=== PATIENT | male | born 1985 | race African-American/Black ===

== ENCOUNTER 2016-08-16 13:56 | Emergency (ER) | payer SELFPAY ==
--- NOTE | 2016-08-16 14:25 | ER Document Report ---
ED Medical Screen (RME) - General Stated Complaint: STOMACH PAIN Time seen by provider: 14:23 Mode of Arrival: Ambulatory Information source: Patient Notes: 31-year-old male complaining of sharp periUmbilical abdominal pain 4/5 now, worse when he eats over the past week. He has been vomiting scat blood at times , occurred last night and that is why he came today.. TRAVEL OUTSIDE OF THE [place] IN LAST 30 DAYS: No - Related Data Allergies/Adverse Reactions: No Known Allergies Allergy (Verified 08/16/16 14:23) Past Medical History Psychiatric Medical History: Reports: Hx Attention Deficit Hyperactivity Disorder, Hx Bipolar Disorder, Hx Depression, Hx Schizophrenia Past Surgical History: Reports: Hx Cardiac Surgery - Open heart surgery as - Immunizations Immunizations up to date: Yes Hx Diphtheria, Pertussis, Tetanus Vaccination: Yes Physical Exam - Vital signs Vitals: Temp Pulse Resp BP Pulse Ox 98.3 F 71 16 130/70 H 98 08/16/16 14:16 08/16/16 14:16 08/16/16 14:16 08/16/16 14:16 08/16/16 14:16 Course - Vital Signs Vital signs: Temp Pulse Resp BP Pulse Ox 98.3 F 71 16 130/70 H 98 08/16/16 14:16 08/16/16 14:16 08/16/16 14:16 08/16/16 14:16 08/16/16 14:16
[2016-08-16] MEDS ORDERED: MAG HYDROX/AL HYDROX/SIMETH SUSP 30 ML UDCUP PO ONE (15:07)
[2016-08-16] MEDS ORDERED: LIDOCAINE 2% VISCOUS SOLN 20 ML UDCUP PO ONE (15:07)
[2016-08-16] MEDS ORDERED: METOCLOPRAMIDE HCL ORAL SOLN 10 MG/10 ML UDCUP PO ONE (15:07)
--- NOTE | 2016-08-16 15:09 | ER Document Report ---
ED GI/ <FAITHMARCIAL - Last Filed: 08/16/16 16:04> - General Mode of Arrival: Ambulatory Information source: Patient TRAVEL OUTSIDE OF THE [place] IN LAST 30 DAYS: No - HPI Patient complains to provider of: Abdominal pain Onset: Other - 1 week ago Location: Epigastric Associated symptoms: Other - see above <EDWIN LESLIE - Last Filed: 08/16/16 17:02> - General Chief Complaint: Abdominal Pain Stated Complaint: STOMACH PAIN Notes: 31 year old male with history of abdominal pain and hematemesis presents to the ED complaining of epigastric abdominal pain that started 1 week ago. Patient states that eating exacerbates the pain (7-8/10 on pain scale). Patient explains that spicy food and soda does not upset the patient's stomach. Patient is having normal bowel movements. Patient states that he had an episode of hematemesis last night, but denies any rectal bleeding, trouble urinating, or testicular pain. Patient states that he is not on any medication for his chronic abdominal pain, but takes Pepto Bismol as needed for abdominal discomfort. Patient also denies ever getting an endoscopy performed. (EDWIN LESLIE) - Related Data Allergies/Adverse Reactions: No Known Allergies Allergy (Verified 08/16/16 14:24) Past Medical History - General Information source: Patient - Social History Smoking Status: Never Smoker Chew tobacco use (# tins/day): No Frequency of alcohol use: None Drug Abuse: None Family History: Reviewed & Not Pertinent Patient has suicidal ideation: No Patient has homicidal ideation: No GI Medical History: Reports: Other - history of abdominal pain. Denies: Hx Endoscopy Psychiatric Medical History: Reports: Hx Attention Deficit Hyperactivity Disorder, Hx Bipolar Disorder, Hx Depression, Hx Schizophrenia Past Surgical History: Reports: Hx Cardiac Surgery - Open heart surgery as - Immunizations Immunizations up to date: Yes Hx Diphtheria, Pertussis, Tetanus Vaccination: Yes <EDWIN LESLIE - Last Filed: 08/16/16 17:02> Review of Systems - Review of Systems Constitutional: No symptoms reported EENT: No symptoms reported Cardiovascular: No symptoms reported Respiratory: No symptoms reported Gastrointestinal: See HPI, Abdominal pain, Vomiting, Blood in vomit. denies: Rectal bleeding Genitourinary: No symptoms reported. denies: Dysuria Male Genitourinary: No symptoms reported. denies: Testicular pain Musculoskeletal: No symptoms reported Skin: No symptoms reported Hematologic/Lymphatic: No symptoms reported Neurological/Psychological: No symptoms reported <EDWIN LESLIE - Last Filed: 08/16/16 17:02> Physical Exam - Vital signs Interpretation: Normal - General General appearance: Alert In distress: None - HEENT Head: Normocephalic, Atraumatic Eyes: Normal Extraocular movements intact: Yes Pupils: PERRL - Respiratory Respiratory status: No respiratory distress Breath sounds: Normal - Cardiovascular Rhythm: Regular Heart sounds: Normal auscultation - Abdominal Inspection: Normal Distension: No distension Bowel sounds: Normal Tenderness: Nontender - RUQ and RLQ non-tender, Tender - mild epigastric tenderness to palpation, Other - no rigidity. No: Guarding, Rebound - Back Back: Normal, Nontender - Extremities General upper extremity: Normal inspection, Normal ROM General lower extremity: Normal inspection, Normal ROM - Neurological Neuro grossly intact: Yes Cognition: Normal Orientation: AAOx4 Gianfrn[place] Coma Scale Eye Opening: Spontaneous [place] Coma Scale Verbal: Oriented Gianfranco Coma Scale Motor: Obeys Commands [place] Coma Scale Total: 15 Speech: Normal - Psychological Associated symptoms: Normal affect, Normal mood - Skin Skin Temperature: Warm Skin Moisture: Dry Skin Color: Normal <EDWIN LESLIE - Last Filed: 08/16/16 17:02> - Vital signs Vitals: Temp Pulse Resp BP Pulse Ox 98.3 F 71 16 130/70 H 98 08/16/16 14:16 08/16/16 14:16 08/16/16 14:16 08/16/16 14:16 08/16/16 14:16 (MARCIAL CUEVAS) Course - Laboratory Result Diagrams: 08/16/16 15:15 08/16/16 15:15 <MARCIAL CUEVAS - Last Filed: 08/16/16 16:04> - Laboratory Result Diagrams: 08/16/16 15:15 08/16/16 15:15 <EDWIN LESLIE - Last Filed: 08/16/16 17:02> - Re-evaluation Re-evalutation: 08/16/16 15:39 I personally performed the services described in the documentation, reviewed and edited the documentation which was dictated to my scribe in my presence, and it accurately records my words and actions. presents emergency Department chief plan mild epigastric abdominal pain. He has a history of visits the emergency department in the past for epigastric abdominal pain. He has no right upper quadrant tenderness or relationship to food. He describes it as a burning stays right in the epigastrium he vomited up food yesterday and there were some specks of blood in it but no pure blood in it. He is not lightheaded dizzy no chest pain no shortness of breath no blood when he goes to the bathroom normal bowel movements. No history of Crohn's disease or ulcerative colitis. Does not radiate into the back and denies a history of alcohol or substance abuse. On examination he is well-appearing nontoxic in no acute distress told he is not tachycardic and afebrile. On examination very mild epigastric tenderness but no associated guarding rebound or rigidity 08/16/16 16:03 Patient's discomfort resolved with GI cocktail negative acute white count elevation liver enzymes lipase on examination no acute guarding rebound rigidity or peritoneal signs. We will DC on Prilosec one to 2 day follow-up with the clinic which I have given him for follow-up discussed avoidance of certain types of foods and NSAIDs alcohol cigarette and soda. Discussed reasons for ED return sooner (MARCIAL CUEVAS) - Vital Signs Vital signs: Temp Pulse Resp BP Pulse Ox 98.3 F 71 16 130/70 H 98 08/16/16 14:16 08/16/16 14:16 08/16/16 14:45 08/16/16 14:16 08/16/16 14:16 (MARCIAL CUEVAS) (EDWIN LESLIE) - Laboratory Laboratory results interpreted by me: 08/16/16 08/16/16 15:05 15:15 Hgb 12.8 L Urine Urobilinogen 2.0 H Urine Ascorbic Acid 40 H (MARCIAL CUEVAS) Scribe Documentation - Scribe Written by Yash:: Yash Leiva, 08/16/2016 17:02 acting as scribe for :: Faith <EDWIN LESLIE - Last Filed: 08/16/16 17:02>
[2016-08-16 15:29] LABS: ABSOLUTE BASOPHILS # (AUTO) 0.1 10^3/uL (0.0-0.2); ABSOLUTE EOSINOPHILS # (AUTO) 0.2 10^3/uL (0.0-0.6); ABSOLUTE LYMPHOCYTES (AUTO) 2.4 10^3/uL (0.5-4.7); ABSOLUTE MONOCYTES (AUTO) 0.5 10^3/uL (0.1-1.4); ABSOLUTE NEUT (AUTO) 2.5 10^3/uL (1.7-8.2); BASOPHILS % (AUTO) 1.2 % (0-2); EOSINOPHILS % (AUTO) 4.1 % (0-6); HEMATOCRIT 38.2 % (37.9-51.0); HEMOGLOBIN 12.8 g/dL (13.5-17.0); HGB HCT DIFFERENCE 0.2; LYMPHOCYTES % (AUTO) 41.3 % (13-45); MEAN CORPUSCULAR HEMOGLOBIN 28.4 pg (27.0-33.4); MEAN CORPUSCULAR HGB CONC 33.6 g/dL (32.0-36.0); MEAN CORPUSCULAR VOLUME 84 fl (80-97); MONOCYTES % (AUTO) 9.3 % (3-13); RED BLOOD COUNT 4.53 10^6/uL (4.35-5.55); RED CELL DISTRIBUTION WIDTH 12.3 % (11.5-14.0); SEGMENTED NEUTROPHILS % (AUTO) 44.1 % (42-78); WHITE BLOOD COUNT 5.7 10^3/uL (4.0-10.5)
[2016-08-16 15:42] LABS: ALANINE AMINOTRANSFERASE 25 U/L (21-72); ALBUMIN 4.3 g/dL (3.5-5.0); ALKALINE PHOSPHATASE 64 U/L (38-126); ANION GAP 12 (5-19); ASPARTATE AMINO TRANSFERASE 17 U/L (17-59); BLOOD UREA NITROGEN 11 mg/dL (7-20); CALCIUM 9.5 mg/dL (8.4-10.2); CARBON DIOXIDE 26 mmol/L (22-30); CHLORIDE 107 mmol/L (98-107); CREATININE RESULT 0.96 mg/dL (0.52-1.25); GLUCOSE 80 mg/dL (75-110); LIPASE 46.1 U/L (23-300); POTASSIUM 3.9 mmol/L (3.6-5.0); SODIUM 144.8 mmol/L (137-145); TOTAL PROTEIN 7.3 g/dL (6.3-8.2)
[2016-08-16 15:56] LABS: APPEARANCE,URINE CLEAR; BILIRUBIN,URINE NEGATIVE (NEGATIVE); GLUCOSE, URINE NEGATIVE (NEGATIVE); KETONES,URINE NEGATIVE (NEGATIVE); LEUKOCYTE ESTERASE,URINE NEGATIVE (NEGATIVE); NITRITE,URINE NEGATIVE (NEGATIVE); PROTEIN,URINE NEGATIVE (NEGATIVE)
[2016-08-16 17:54] VITALS: BP 106/53
[2016-08-17 17:04] LABS: URINE BARBITURATES SCREEN NEGATIVE; URINE METHADONE SCREEN NEGATIVE; URINE PHENCYCLIDINE SCREEN NEGATIVE
--- NOTE | 2016-08-25 20:32 | ER Document Report ---
Doctor's Note Notes: 08/25/16 20:32 diagnosis 1. acute epigastric abdominal pain
== END 2016-08-16 16:15 | disposition home or self-care (01) ==
LOC: ER 13:56
DX: R10.13 Epigastric pain (principal); K92.0 Hematemesis
CPT/HCPCS: 99284; 36415; 83690; 85025; 80053; 81001; 80307; J3490

== ENCOUNTER 2016-08-18 07:13 | Emergency (ER) | payer SELFPAY ==
[2016-08-18] MEDS ORDERED: MAG HYDROX/AL HYDROX/SIMETH SUSP 30 ML UDCUP PO ONE (09:05)
[2016-08-18] MEDS ORDERED: LIDOCAINE 2% VISCOUS SOLN 20 ML UDCUP PO ONE (09:05)
[2016-08-18] MEDS ORDERED: METOCLOPRAMIDE HCL ORAL SOLN 10 MG/10 ML UDCUP PO ONE (09:05)
[2016-08-18 09:40] LABS: ALANINE AMINOTRANSFERASE 15 U/L (21-72); ALBUMIN 3.7 g/dL (3.5-5.0); ALKALINE PHOSPHATASE 61 U/L (38-126); ANION GAP 10 (5-19); ASPARTATE AMINO TRANSFERASE 19 U/L (17-59); BILIRUBIN,TOTAL 1.2 mg/dL (0.2-1.3); BLOOD UREA NITROGEN 13 mg/dL (7-20); CALCIUM 9.3 mg/dL (8.4-10.2); CARBON DIOXIDE 27 mmol/L (22-30); CHLORIDE 107 mmol/L (98-107); CREATININE RESULT 0.97 mg/dL (0.52-1.25); GLUCOSE 83 mg/dL (75-110); LIPASE 43.4 U/L (23-300); POTASSIUM 4.1 mmol/L (3.6-5.0); SODIUM 144.3 mmol/L (137-145); TOTAL PROTEIN 6.9 g/dL (6.3-8.2)
[2016-08-18 09:42] LABS: ABSOLUTE BASOPHILS # (AUTO) 0.1 10^3/uL (0.0-0.2); ABSOLUTE EOSINOPHILS # (AUTO) 0.1 10^3/uL (0.0-0.6); ABSOLUTE LYMPHOCYTES (AUTO) 1.2 10^3/uL (0.5-4.7); ABSOLUTE MONOCYTES (AUTO) 0.4 10^3/uL (0.1-1.4); ABSOLUTE NEUT (AUTO) 2.7 10^3/uL (1.7-8.2); BASOPHILS % (AUTO) 1.2 % (0-2); EOSINOPHILS % (AUTO) 2.7 % (0-6); HEMATOCRIT 37.1 % (37.9-51.0); HEMOGLOBIN 12.5 g/dL (13.5-17.0); HGB HCT DIFFERENCE 0.4; LYMPHOCYTES % (AUTO) 27.7 % (13-45); MEAN CORPUSCULAR HEMOGLOBIN 28.6 pg (27.0-33.4); MEAN CORPUSCULAR HGB CONC 33.7 g/dL (32.0-36.0); MEAN CORPUSCULAR VOLUME 85 fl (80-97); MONOCYTES % (AUTO) 8.4 % (3-13); RED BLOOD COUNT 4.37 10^6/uL (4.35-5.55); RED CELL DISTRIBUTION WIDTH 12.2 % (11.5-14.0); WHITE BLOOD COUNT 4.5 10^3/uL (4.0-10.5)
[2016-08-18 09:48] LABS: APPEARANCE,URINE CLEAR; BILIRUBIN,URINE NEGATIVE (NEGATIVE); GLUCOSE, URINE NEGATIVE (NEGATIVE); KETONES,URINE NEGATIVE (NEGATIVE); LEUKOCYTE ESTERASE,URINE NEGATIVE (NEGATIVE); NITRITE,URINE NEGATIVE (NEGATIVE); PROTEIN,URINE NEGATIVE (NEGATIVE); URINE SPECIFIC GRAVITY 1.028
--- NOTE | 2016-08-18 11:47 | ER Document Report ---
ED GI/ - General Chief Complaint: Abdominal Pain Stated Complaint: Abdominal Pain Mode of Arrival: Ambulatory Information source: Patient Notes: 31-year-old male presents to the emergency department complaining of intermittently persistent abdominal/epigastric pain for approximately the last 2 weeks. Patient describes pain as sharp/stabbing, nonradiating, and states seems to be worse after eating or drinking. Reports associated nausea and states had one episode of vomiting yesterday. Report was seen in this emergency department 2 days ago but symptoms have not improved. Denies fever, hemoptysis, chest pain or shortness of breath, hemoptysis or hematemesis. TRAVEL OUTSIDE OF THE [place] IN LAST 30 DAYS: No - HPI Patient complains to provider of: Abdominal pain Timing/Duration: Intermittent, Persistent Quality of pain: Sharp, Stabbing Severity at maximum: Moderate Severity in ED: Mild Pain Level: 2 Location: Epigastric Associated symptoms: Nausea Similar symptoms previously: Yes Recently seen / treated by doctor: Yes - Related Data Allergies/Adverse Reactions: No Known Allergies Allergy (Verified 08/16/16 14:24) Past Medical History - General Information source: Patient - Social History Smoking Status: Never Smoker Frequency of alcohol use: None Drug Abuse: None Lives with: Family Family History: Reviewed & Not Pertinent GI Medical History: Denies: Hx Endoscopy Psychiatric Medical History: Reports: Hx Attention Deficit Hyperactivity Disorder, Hx Bipolar Disorder, Hx Depression, Hx Schizophrenia Past Surgical History: Reports: Hx Cardiac Surgery - Open heart surgery as - Immunizations Immunizations up to date: Yes Hx Diphtheria, Pertussis, Tetanus Vaccination: Yes Review of Systems - Review of Systems Constitutional: No symptoms reported EENT: No symptoms reported Cardiovascular: No symptoms reported Respiratory: No symptoms reported Gastrointestinal: See HPI Genitourinary: No symptoms reported Male Genitourinary: No symptoms reported Musculoskeletal: No symptoms reported Skin: No symptoms reported Hematologic/Lymphatic: No symptoms reported Neurological/Psychological: No symptoms reported -: Yes All other systems reviewed and negative Physical Exam - Vital signs Vitals: Temp Pulse Resp BP Pulse Ox 98.8 F 65 12 131/77 H 99 08/18/16 13:47 08/18/16 13:47 08/18/16 13:47 08/18/16 13:47 08/18/16 13:47 Interpretation: Normal - General General appearance: Appears well, Alert In distress: None - HEENT Head: Normocephalic, Atraumatic Eyes: Normal Pupils: PERRL - Respiratory Respiratory status: No respiratory distress Chest status: Nontender Breath sounds: Normal Chest palpation: Normal - Cardiovascular Rhythm: Regular Heart sounds: Normal auscultation Murmur: No Pulses: Normal: Radial Normal capillary refill: Yes - Abdominal Inspection: Normal Distension: No distension Bowel sounds: Normal Tenderness: Tender - Mild tenderness to palpation to mid upper/epigastric area.. No: Nontender, McBurney's point, Mitchell's sign, Guarding, Rebound, Other Organomegaly: No organomegaly - Back Back: Normal, Nontender. No: Tender, Deformity/step-off, CVA tenderness, Vertebra tenderness, Scars, Scoliosis, Wounds, Other - Extremities General upper extremity: Normal inspection, Nontender, Normal color, Normal ROM , Normal strength, Normal temperature. No: Tender, Edema General lower extremity: Normal inspection, Nontender, Normal color, Normal ROM , Normal strength, Normal temperature, Normal weight bearing. No: Tender, Edema - Neurological Neuro grossly intact: Yes Cognition: Normal Orientation: AAOx4 Gianfranco Coma Scale Eye Opening: Spontaneous [place] Coma Scale Verbal: Oriented [place]fr[place] Coma Scale Motor: Obeys Commands [place] Coma Scale Total: 15 Speech: Normal Motor strength normal: LUE, RUE, LLE, RLE Sensory: Normal - Psychological Associated symptoms: Normal affect, Normal mood - Skin Skin Temperature: Warm Skin Moisture: Dry Skin Color: Normal Skin Turgor: Elastic Course - Re-evaluation Re-evalutation: 08/18/16 13:37 Patient hemodynamically stable, in no distress, afebrile, and appears well- hydrated. Tolerating oral fluids without difficulty or vomiting. Labs and upper abdominal ultrasound unremarkable. No suggestion of emergent intra- abdominal, infectious or cardiovascular etiology at this time. States GI cocktail resolved symptoms. Will prescribe a course of H2 rach and her feet. Patient appears stable for discharge and agrees with home care, follow- up with PCP and GI, and ED return precautions. - Vital Signs Vital signs: Temp Pulse Resp BP Pulse Ox 98.8 F 65 12 131/77 H 99 08/18/16 13:47 08/18/16 13:47 08/18/16 13:47 08/18/16 13:47 08/18/16 13:47 - Laboratory Result Diagrams: 08/18/16 08:14 08/18/16 08:14 Laboratory results interpreted by me: 08/18/16 08/18/16 08/18/16 08:14 08:14 09:25 Hgb 12.5 L Hct 37.1 L ALT 15 L Urine Urobilinogen 4.0 H - Diagnostic Test Radiology reviewed: Image reviewed, Reports reviewed Discharge - Discharge Clinical Impression: Epigastric abdominal pain Condition: Stable Disposition: HOME, SELF-CARE Instructions: Evaluation of Upper Abdominal Pain ([facility]), Acid-Suppressing Medication ([facility]), Sucralfate ([facility]), Antacid Therapy ([facility]) Additional Instructions: Follow-up with your primary care provider and GI this week. Drink plenty of fluids, preferably water, and avoid caffeine, tea, alcohol, mint , spicy, and fatty foods. Return to the emergency department for any worsening symptoms or concerns. Prescriptions: Ranitidine HCl [Zantac 150 mg Tablet] 150 mg PO BID #30 tablet Sucralfate [Carafate 1 gm Tablet] 1 gm PO ACHS #30 tablet Referrals: TITI WILSON MD [ACTIVE STAFF] - Follow up in 3-5 days
[2016-08-18 14:04] VITALS: BP 131/77
== END 2016-08-18 13:55 | disposition home or self-care (01) ==
LOC: ER 07:13
DX: R10.13 Epigastric pain (principal); R11.0 Nausea
CPT/HCPCS: 99284; 36415; 83690; 85025; 80053; 81001; 76705; J3490

== ENCOUNTER 2016-08-27 17:00 | Emergency (ER) | payer SELFPAY ==
[2016-08-27 17:53] LABS: ABSOLUTE BASOPHILS # (AUTO) 0.1 10^3/uL (0.0-0.2); ABSOLUTE EOSINOPHILS # (AUTO) 0.1 10^3/uL (0.0-0.6); ABSOLUTE LYMPHOCYTES (AUTO) 1.3 10^3/uL (0.5-4.7); ABSOLUTE MONOCYTES (AUTO) 0.4 10^3/uL (0.1-1.4); ABSOLUTE NEUT (AUTO) 3.3 10^3/uL (1.7-8.2); BASOPHILS % (AUTO) 1.3 % (0-2); EOSINOPHILS % (AUTO) 1.3 % (0-6); HEMATOCRIT 41.6 % (37.9-51.0); HEMOGLOBIN 13.1 g/dL (13.5-17.0); HGB HCT DIFFERENCE -2.3; LYMPHOCYTES % (AUTO) 25.1 % (13-45); MEAN CORPUSCULAR HEMOGLOBIN 27.5 pg (27.0-33.4); MEAN CORPUSCULAR HGB CONC 31.4 g/dL (32.0-36.0); MEAN CORPUSCULAR VOLUME 88 fl (80-97); MONOCYTES % (AUTO) 8.1 % (3-13); RED BLOOD COUNT 4.75 10^6/uL (4.35-5.55); SEGMENTED NEUTROPHILS % (AUTO) 64.2 % (42-78); WHITE BLOOD COUNT 5.1 10^3/uL (4.0-10.5)
[2016-08-27 18:06] LABS: APPEARANCE,URINE CLEAR; BILIRUBIN,URINE NEGATIVE (NEGATIVE); GLUCOSE, URINE NEGATIVE (NEGATIVE); KETONES,URINE 20 mg/dL (NEGATIVE); LEUKOCYTE ESTERASE,URINE NEGATIVE (NEGATIVE); NITRITE,URINE NEGATIVE (NEGATIVE); PROTEIN,URINE 30 mg/dL (NEGATIVE); URINE SPECIFIC GRAVITY 1.031
[2016-08-27 18:11] LABS: ALANINE AMINOTRANSFERASE 14 U/L (21-72); ALBUMIN 4.5 g/dL (3.5-5.0); ALCOHOL < 10 mg/dL (NONE DETECTED); ALKALINE PHOSPHATASE 63 U/L (38-126); ANION GAP 18 (5-19); ASPARTATE AMINO TRANSFERASE 20 U/L (17-59); BILIRUBIN,TOTAL 1.7 mg/dL (0.2-1.3); BLOOD UREA NITROGEN 12 mg/dL (7-20); CALCIUM 9.9 mg/dL (8.4-10.2); CARBON DIOXIDE 23 mmol/L (22-30); CHLORIDE 103 mmol/L (98-107); CREATININE RESULT 1.06 mg/dL (0.52-1.25); GLUCOSE 75 mg/dL (75-110); POTASSIUM 3.5 mmol/L (3.6-5.0); SODIUM 143.5 mmol/L (137-145); TOTAL PROTEIN 8.3 g/dL (6.3-8.2)
[2016-08-27 18:16] LABS: URINE BARBITURATES SCREEN NEGATIVE; URINE METHADONE SCREEN NEGATIVE; URINE PHENCYCLIDINE SCREEN NEGATIVE
--- NOTE | 2016-08-27 20:56 | EKG REPORT ---
SEVERITY:- ABNORMAL ECG - SINUS RHYTHM LEFT ANTERIOR FASCICULAR BLOCK BORDERLINE T WAVE ABNORMALITIES : Confirmed by: Naseem Nelson MD 27-Aug-2016 20:56:01
--- NOTE | 2016-08-27 23:29 | ER Document Report ---
ED General - General TRAVEL OUTSIDE OF THE [place] IN LAST 30 DAYS: No - HPI Patient complains to provider of: psychiatric evaluation <NATHEN SALDANA - Last Filed: 08/27/16 23:27> <VIKASH VILLA - Last Filed: 08/28/16 01:58> - General Chief Complaint: Psych Problem Stated Complaint: PSYCH EVALUATION - HPI Notes: Patient's coming in for psychiatric evaluation requesting voluntary commitment. Patient states recently was released from detention states he has a history of schizophrenia has not been on any medications and is hearing voices. Patient denies any homicidal suicidal ideation. Upon my evaluation patient is very relaxed sleeping easily arousable no signs of acute psychosis. (NATHEN SALDANA) - Related Data Allergies/Adverse Reactions: No Known Allergies Allergy (Verified 08/16/16 14:24) Past Medical History - Social History Family History: Reviewed & Not Pertinent GI Medical History: Denies: Hx Endoscopy Psychiatric Medical History: Reports: Hx Attention Deficit Hyperactivity Disorder, Hx Bipolar Disorder, Hx Depression, Hx Schizophrenia Past Surgical History: Reports: Hx Cardiac Surgery - Open heart surgery as - Immunizations Immunizations up to date: Yes Hx Diphtheria, Pertussis, Tetanus Vaccination: Yes <NATHEN SALDANA - Last Filed: 08/27/16 23:27> - Social History Smoking Status: Unknown if Ever Smoked <VIKASH VILLA - Last Filed: 08/28/16 01:58> Review of Systems - Review of Systems Constitutional: No symptoms reported EENT: No symptoms reported Cardiovascular: No symptoms reported Respiratory: No symptoms reported Gastrointestinal: No symptoms reported Genitourinary: No symptoms reported Male Genitourinary: No symptoms reported Musculoskeletal: No symptoms reported Skin: No symptoms reported Hematologic/Lymphatic: No symptoms reported Neurological/Psychological: Hallucinations - Auditory -: Yes All other systems reviewed and negative <NATHEN SALDANA - Last Filed: 08/27/16 23:27> Physical Exam - Vital signs Interpretation: Normal - General General appearance: Appears well, Alert - HEENT Head: Normocephalic, Atraumatic Eyes: Normal Pupils: PERRL - Respiratory Respiratory status: No respiratory distress Chest status: Nontender Breath sounds: Normal Chest palpation: Normal - Cardiovascular Rhythm: Regular Heart sounds: Normal auscultation Murmur: No - Abdominal Inspection: Normal Distension: No distension Bowel sounds: Normal Tenderness: Nontender Organomegaly: No organomegaly - Back Back: Normal, Nontender - Extremities General upper extremity: Normal inspection, Nontender, Normal color, Normal ROM , Normal temperature General lower extremity: Normal inspection, Nontender, Normal color, Normal ROM , Normal temperature, Normal weight bearing. No: Rell's sign - Neurological Neuro grossly intact: Yes Cognition: Normal Orientation: AAOx4 Gianfranco Coma Scale Eye Opening: Spontaneous [place] Coma Scale Verbal: Oriented [place] Coma Scale Motor: Obeys Commands [place] Coma Scale Total: 15 Speech: Normal Motor strength normal: LUE, RUE, LLE, RLE Sensory: Normal - Psychological Associated symptoms: Normal affect, Normal mood, Other - States auditory hallucinations - Skin Skin Temperature: Warm Skin Moisture: Dry Skin Color: Normal <NATHEN SALDANA - Last Filed: 08/27/16 23:27> Course - Laboratory Result Diagrams: 08/27/16 17:21 08/27/16 17:21 <NATHEN SALDANA - Last Filed: 08/27/16 23:27> - Laboratory Result Diagrams: 08/27/16 17:21 08/27/16 17:21 <VIKASH VILLA - Last Filed: 08/28/16 01:58> - Re-evaluation Re-evalutation: 08/27/16 23:28 Patient with a homicidal suicidal ideation at this time. Patient has no signs of psychosis. Patient has no criteria for IVC. At this time patient will hold in ER for psychiatric evaluation in the morning as long as he is cooperative ( NATHEN SALDANA) 08/28/16 01:57 Patient does not want to stay in the emergency department. No suicidal or homicidal ideation. No evidence for psychosis. Patient will be discharged. ( VIKASH VILLA) - Laboratory Laboratory results interpreted by ri: 08/27/16 08/27/16 08/27/16 16:53 17:21 17:21 Hgb 13.1 L MCHC 31.4 L Potassium 3.5 L Total Bilirubin 1.7 H ALT 14 L Total Protein 8.3 H Urine Protein 30 H Urine Ketones 20 H Urine Urobilinogen 4.0 H Salicylates < 1.0 L Acetaminophen < 10 L (NATHEN SALDANA) (VIKASH VILLA) Discharge <NATHEN SALDANA - Last Filed: 08/27/16 23:27> <VIKASH VILLA - Last Filed: 08/28/16 01:58> - Discharge Clinical Impression: Auditory hallucinations Condition: Stable Disposition: HOME, SELF-CARE Instructions: Hallucinations ([facility]) Additional Instructions: Please follow-up with your counselor.
[2016-08-28 02:21] VITALS: BP 117/74
== END 2016-08-28 02:55 | disposition home or self-care (01) ==
LOC: ER 17:00
DX: F20.9 Schizophrenia, unspecified (principal)
CPT/HCPCS: 36415; 80053; 80307; 81001; 85025; 93005; 93010; 99284

== ENCOUNTER 2019-07-01 18:08 | Emergency (ER) | payer SELFPAY ==
[2019-07-01 18:38] VITALS: BP 128/83
--- NOTE | 2019-07-01 18:38 | ER Document Report ---
ED General - General Chief Complaint: Psych Problem Stated Complaint: PSYCH Time Seen by Provider: 07/01/19 18:37 TRAVEL OUTSIDE OF THE [place] IN LAST 30 DAYS: No - HPI Notes: Patient is a 33-year-old male with a history of paranoid schizophrenia presenting to the emergency department complaining of paranoid delusions concerning mind control that have been present for approximately 2 weeks. Patient states he has not had the money to get his psychiatric meds filled; patient usually takes Prolixin 2.5 mg daily, Celexa 20 mg daily, Cogentin 1 mg daily and doxepin 25 mg nightly prn insomnia. Patient denies suicidal ideation, homicidal ideation. Patient states "I just need to be back on my meds". - Related Data Allergies/Adverse Reactions: No Known Allergies Allergy (Verified 08/16/16 14:24) Past Medical History - General Information source: Patient - Social History Smoking Status: Never Smoker Frequency of alcohol use: None Drug Abuse: None Family History: Reviewed & Not Pertinent - Medical History Medical History: Negative GI Medical History: Denies: Hx Endoscopy Psychiatric Medical History: Reports: Hx Attention Deficit Hyperactivity Disorder, Hx Bipolar Disorder, Hx Depression, Hx Schizophrenia Past Surgical History: Reports: Hx Cardiac Surgery - Open heart surgery as - Immunizations Immunizations up to date: Yes Hx Diphtheria, Pertussis, Tetanus Vaccination: Yes Review of Systems - Review of Systems Constitutional: No symptoms reported EENT: No symptoms reported Cardiovascular: No symptoms reported Respiratory: No symptoms reported Gastrointestinal: No symptoms reported Genitourinary: No symptoms reported Male Genitourinary: No symptoms reported Musculoskeletal: No symptoms reported Skin: No symptoms reported Hematologic/Lymphatic: No symptoms reported Neurological/Psychological: Hallucinations - Auditory -: Yes All other systems reviewed and negative Physical Exam - Vital signs Vitals: Temp Pulse Resp BP Pulse Ox 98.7 F 95 16 128/83 H 99 07/01/19 18:37 07/01/19 18:37 07/01/19 18:37 07/01/19 18:37 07/01/19 18:37 - Notes Notes: PHYSICAL EXAMINATION: GENERAL: Well-appearing, well-nourished and in no acute distress. HEAD: Atraumatic, normocephalic. EYES: Pupils equal round and reactive to light, extraocular movements intact, sclera anicteric, conjunctiva are normal. ENT: nares patent, oropharynx clear without exudates. Moist mucous membranes. NECK: Normal range of motion, supple without lymphadenopathy LUNGS: Breath sounds clear to auscultation bilaterally and equal. No wheezes rales or rhonchi. HEART: Regular rate and rhythm without murmurs ABDOMEN: Soft, nontender, normoactive bowel sounds. No guarding, no rebound. No masses appreciated. EXTREMITIES: Normal range of motion, no pitting or edema. No cyanosis. NEUROLOGICAL: No focal neurological deficits. Moves all extremities spontaneously and on command. PSYCH: Slightly depressed affect, nonpressured speech, good eye contact, goal oriented thought. SKIN: Warm, Dry, normal turgor, no rashes or lesions noted. Course - Re-evaluation Re-evalutation: 07/01/191914 Medical decision making: This MD is going to give the patient a dose of his Prolixin, Celexa and Cogentin here in the ED, provide the patient with a cab vou harmony so he can return home. This MD is also going to write the patient for a 30 day supply of Prolixin 2.5 mg tabs, Celexa 20 mg tablets, Cogentin 1 mg tablets and a 7-day supply of doxepin 25 mg tablets. - Vital Signs Vital signs: Temp Pulse Resp BP Pulse Ox 98.7 F 95 16 128/83 H 99 07/01/19 18:37 07/01/19 18:37 07/01/19 18:37 07/01/19 18:37 07/01/19 18:37 Discharge - Discharge Clinical Impression: Schizophrenia, Noncompliance with medication regimen Condition: Good Disposition: HOME, SELF-CARE Instructions: Schizophrenia ([facility]) Additional Instructions: Return to the Emergency Department without delay if any worse. Be certain to fill your prescriptions provided and follow-up with your mental health care provider on 07/02/2019. HOME CARE INSTRUCTIONS & INFORMATION: Thank you for choosing us for your medical needs. We hope you're satisfied with the care you received. After you leave, you must properly care for your problem and, at the same time, observe its progress. Any condition can change. Some illnesses can change rapidly over hours or days. If your condition worsens, return to the Emergency Department or see your physician promptly. ABOUT YOUR X-RAYS AND EKG'S: If you had an EKG or X-rays taken, they have been read by the Emergency Physician. The X-rays and EKG's will also be read by a Radiologist or Mulling Machine Operator within 24 hours. If discrepancies are noted, you will be notified by telephone. Please be certain the ED has a correct telephone number & address where you can be reached. Also, realize that some fractures or abnormalities do not show up on initial X-rays. If your symptoms continue, see your physician. ABOUT YOUR LABORATORY TEST: If you had laboratory tests, the results have been reviewed by the Emergency Physician. Some test results (for example cultures) may not be available for several days. You will be contacted if any test result shows you need additional treatment. Please be certain the ED has a correct telephone number and address where you can be reached. ABOUT YOUR MEDICATIONS: You will receive instructions on how to take your medicine on the prescription label you receive. Additional information may be provided by the Pharmacy. If you have questions afterwards, call the ED for clarification or further instructions. Some prescribed medications may cause drowsiness. Do not perform tasks such as driving a car or operating machinery without consulting your Pharmacist. If you feel you need a refill of pain medication, your condition will need re-evaluation. Please do not call for a refill of any medication. ABOUT YOUR SIGNATURE: Signature of this document acknowledges to followin. Understanding that you received emergency treatment and that you may be released before al medical problems are known or treated. Please be certain the ED has a correct phone number & address where you can be reached. 2. Acknowledgement that you will arrange for follow-up care as recommended. 3. Authorization for the Emergency Physician to provide information to your follow-up Physician in order to maximize your care. AT ANY TIME, IF YOUR SYMPTOMS CHANGE SIGNIFICANTLY OR WORSEN OR YOU DEVELOP NEW SYMPTOMS, RETURN TO THE EMERGENCY DEPARTMENT IMMEDIATELY FOR RE-EVALUATION. OUR GOAL IS TO PROVIDE EXCELLENT MEDICAL CARE! WE HOPE THAT WE HAVE MET YOUR EXPECTATIONS DURING YOUR EMERGENCY DEPARTMENT VISIT AND THAT YOU FEEL YOU HAVE RECEIVED EXCELLENT CARE! Prescriptions: Doxepin HCl [S[place]qu[place] 25 mg Capsule] 25 mg PO QHS PRN #7 capsule PRN Reason: insomnia Citalopram Hydrobromide [Celexa 20 mg Tablet] 20 mg PO DAILY #30 tablet Benztropine Mesylate [Cogentin 1 mg Tablet] 1 tab PO DAILY #30 tab Fluphenazine HCl [Prolixin 2.5 Mg Tablet] 2.5 mg PO DAILY 30 Days #30 tablet Referrals: [facility] [Outside] - 07/02/19 (Call [facility] on 07/02/19 to arrange f [facility] up appointment)
[2019-07-01] MEDS ORDERED: BENZTROPINE MESYLATE 1 MG TABLET PO ONE (19:04)
[2019-07-01] MEDS ORDERED: FLUPHENAZINE HCL 2.5 MG TABLET PO ONE (19:04)
[2019-07-01] MEDS ORDERED: CITALOPRAM HYDROBROMIDE 20 MG TABLET PO ONE (19:04)
[2019-07-01] MEDS ORDERED: FLUPHENAZINE HCL 2.5 MG TABLET ONE (19:26)
== END 2019-07-01 19:47 | disposition home or self-care (01) ==
LOC: ER 18:08
DX: F20.9 Schizophrenia, unspecified (principal); Z91.14 Patient's other noncompliance with medication regimen
CPT/HCPCS: 99284; J3490